=== PATIENT | female | born 2000 | race Caucasian/White ===

== ENCOUNTER 2021-04-09 09:24 | Outpatient (CLI) | payer OTHER ==
[2021-04-09 10:15] LABS: #Eosinphils 0.1 10x3/uL (0.0-0.5); #Monocytes 0.4 10x3/uL (0.0-1.1); #Neutrophils 3.5 10x3/uL (1.5-8.4); %Basophils 0.2 % (0.0-2.0); %Eosinophils 1.9 % (0.0-6.0); %Lymphocytes 29.6 % (18.0-47.0); %Monocytes 6.2 % (0.0-10.0); %Neutrophils 61.9 % (40.0-75.0); Hemoglobin 13.6 g/dL (12.0-15.5); Mean Corpuscular HGB CONC 33.6 g/dL (32.0-36.0); Mean Corpuscular Hemoglobin 29.8 pg (27.0-33.0); Mean Corpuscular Volume 88.8 fl (81.6-98.3); Mean Platelet Volume 9.4 fl (7.4-10.4); Platelet Count 270 10x3/uL (150-450); RBC Distribution Width 12.1 % (11.5-14.5); Red Blood Cell (RBC) Count 4.56 10x6/uL (3.90-5.03); White Blood Cell (WBC) Count 5.7 10x3/uL (3.5-10.5)
[2021-04-09 10:43] LABS: BHCG - Serum Negative (NEGATIVE)
[2021-04-09 10:44] LABS: Pregs Control Background? CLEAR/WHITE (CLR/WHITE); Pregs Control Bar Appear? YES (CONTROL BAR)
[2021-04-10 14:39] LABS: SARS-CoV-2 PCR by NAA Not Detected (NotDetected)
== END 2021-04-09 09:25 | disposition home or self-care (01) ==
LOC: LABBT 09:24
PROVIDERS: ATTEND Orthopaedic Surgery Hand Surgery
DX: Z01.812 Encounter for preprocedural laboratory examination (principal); S63.8X1A Sprain of other part of right wrist and hand, initial encounter; Z20.822 Contact with and (suspected) exposure to COVID-19
CPT/HCPCS: 84703; 85025; U0003; U0005

== ENCOUNTER 2021-04-13 11:47 | Day surgery (SDC) | payer OTHER ==
[2021-04-12 13:10] VITALS: BMI 22.9
[2021-04-13] MEDS ORDERED: Scopolamine 1.5 mg/72 hour Patch ONE (13:54)
[2021-04-13] MEDS ORDERED: Midazolam HCl 2 mg/2 ml Vial ONE ×3 (14:41→17:32)
[2021-04-13] MEDS ORDERED: Fentanyl 100 MCG/2 ML VIAL ONE (17:32)
[2021-04-13] MEDS ORDERED: Bacitracin Zinc Ointment 30 gm TUBE ONE (17:38)
[2021-04-13] MEDS ORDERED: EPINEPHrine 1 MG/ML AMP ONE (17:38)
[2021-04-13] MEDS ORDERED: Bupivacaine PF 0.5% 30 ML VIAL ONE (17:38)
[2021-04-13] MEDS ORDERED: Ondansetron PF 4 MG/2 ML Vial ONE ×2 (18:16→20:30)
[2021-04-13] MEDS ORDERED: Lidocaine 1% PF 5 ML VIAL ONE (18:16)
[2021-04-13] MEDS ORDERED: PROPOFOL 200 MG/20 ML VIAL ONE (18:16)
[2021-04-13] MEDS ORDERED: Dexamethasone 20 MG/5 ML VIAL ONE (18:16)
[2021-04-13] MEDS ORDERED: ePHEDrine 50 MG/ML VIAL ONE (18:16)
[2021-04-13] MEDS ORDERED: Ketorolac Tromethamine 30 MG/ML VIAL ONE ×2 (20:09)
== END 2021-04-13 21:17 | disposition home or self-care (01) ==
LOC: EDSEX → SDC 11:47
PROVIDERS: ATTEND Orthopaedic Surgery Hand Surgery
PROC: 0RQN0ZZ Repair Right Wrist Joint, Open Approach (ICD-10-PCS; principal; 2021-04-13)
DX: S63.591A Other specified sprain of right wrist, initial encounter (principal); M25.331 Other instability, right wrist; S62.124A Nondisplaced fracture of lunate [semilunar], right wrist, initial encounter for closed fracture; S62.134A Nondisplaced fracture of capitate [os magnum] bone, right wrist, initial encounter for closed fracture; Z79.2 Long term (current) use of antibiotics; Z79.899 Other long term (current) drug therapy; X58.XXXA Exposure to other specified factors, initial encounter
CPT/HCPCS: J0171; J0690; J1100; J1885; J2250; J2405; J2704; J3010; J3490; S0020